=== PATIENT | female | born 1975 | race Asian ===

== ENCOUNTER 2020-03-11 12:16 | Outpatient (CLI) | payer MEDICAID ==
--- NOTE | 2020-03-13 17:14 | Consultation ---
DATE OF CONSULTATION: 03/11/2020 CHIEF COMPLAINT: Referral for severe chronic constipation. PAST MEDICAL HISTORY: Constipation. PAST SURGICAL HISTORY: None. MEDICATION: Bisacodyl. FAMILY HISTORY: Noncontributory. SOCIAL HISTORY: The patient is a social drinker. Denies any tobacco or IV drug abuse. ALLERGIES: No known allergies. REVIEW OF SYSTEMS: Positive for chronic constipation. PHYSICAL EXAMINATION: VITAL SIGNS: Temperature 97.2, vital signs stable. Weight is 118.9. HEENT: Normocephalic and atraumatic. Sclerae anicteric. NECK: Supple. No evidence of obvious lymphadenopathy. CARDIOVASCULAR: Regular rate and rhythm. Plus S1-S2. LUNGS: Clear to auscultation bilaterally. ABDOMEN: Positive bowel sounds. Soft and nontender. No rebound. No guarding. No peritoneal sign. EXTREMITIES: No clubbing. No pedal edema. ASSESSMENT AND PLAN: This is a 44-year-old female with chronic constipation, now is getting severely worse over the last 6 months or so. Plan is to check thyroid panel for hypothyroidism. The patient is also very concerned and wants to have a colonoscopy done given the patient has a new change in bowel habit. We are going to obtain authorization for colonoscopy. Norman Chinchilla M.D. DR: HUNG JOB#: [id number] CC:
== END 2020-03-11 14:16 | disposition home or self-care (01) ==
LOC: PAN 12:16
DX: K59.09 Other constipation (principal)
CPT/HCPCS: G0463